=== PATIENT | male | born 1995 | race Caucasian/White ===

== ENCOUNTER → 2020-03-02 | Day surgery (SDC) | payer BC ==
[~2020-03-02] MED LIST: ACETAMINOPHEN-1 EAC1 PO; DULCOLAX5 MG PO; LIDOCAINE 2%2 %/5 GM; PEPCID20 MG PO; PRILOSEC 20 MG20 MG PO; SERTRALINE HCL50 MG PO; TOPROL XL50 MG; XYREM500 MG/1 M PO; ZOLOFT50 MG PO
--- NOTE | 2020-03-02 09:16 | EKG ---
[place] [address] ELECTROCARDIOGRAM REPORT Name: WILL MONTELONGO Room: [facility]#: [id number] Admission: 03/02/20 Attend Phys: Loco Thurman DO Discharge: Date of : 89 Date of Service: 03/02/20728 Report #: [id number] THIS REPORT FOR: //name// [facility] Test Date: 2020-03-02 Test Time: 07:29:32 Pat Name: WILL MONTELONGO Department: Room: Gender: Driver Manager: : 1995 Requested By: Loco Thurman Order Number: [id number] Reading MD: Simone Echavarria Measurements Intervals [place] Rate: 74 P: 59 NC: 195 QRS: 59 QRSD: 83 T: 49 QT: 360 QTc: 400 Interpretive Statements Sinus rhythm early repolarization No previous ECG available for comparison Electronically Signed On 03-02-2020 9:15:05 CDT by Simone Echavarria [email or web address] <ELECTRONICALLY SIGNED> By: Simone Echavarria MD, [facility] 03/02/2015 8 0729 Simone Echavarria MD, FACC /EPI
--- NOTE | 2020-03-02 10:17 | OP ---
[address] [address] OPERATIVE REPORT Name: WILL MONTELONGO Room: [facility]#: [id number] Admission: 03/02/20 Attend Phys: Loco Thurman DO Discharge: Date of : [birth year] Report #: [id number] THIS REPORT FOR: //name// cc: Clara Lawler MD, Pamela MD ~ THIS REPORT FOR: //name// CC: Loco Lawler DICTATED BY: Oswaldo Key DO DATE OF SERVICE: 03/02/2020 PREOPERATIVE DIAGNOSIS: Anal fissure. POSTOPERATIVE DIAGNOSIS: Posterior midline anal fissure. PRIMARY SURGEON: Loco Thurman DO CO-SURGEON: Oswaldo Key DO MUSEUM GUIDE: None. OPERATION PERFORMED: Anal exam under anesthesia, digital rectal exam, anoscopy and anal dilation. ANESTHESIA: Both general and local. ESTIMATED BLOOD LOSS: 10 mL. SPECIMEN REMOVED: None. COMPLICATIONS: None. DISPOSITION: PACU to home. INDICATIONS FOR PROCEDURE: The patient is a pleasant 24-year-old male who presented to the office with chief complaint of severe anal pain with stooling. The patient does have a chronic history of constipation for which he takes multiple laxatives and stool softeners daily in order to keep regular, suspected anal fissure, unable to perform adequate exam in the office. Recommended anal exam under anesthesia with possible anal dilation. Full discussion of procedure, alternatives, risks, and possible complications were discussed include but not limited to bleeding, infection, postoperative pain, stricture, recurrence of the fissure and incontinence. The patient voiced understanding of [address] [place] [address] OPERATIVE REPORT Name: JAYDAWILL QUEVEDO Room: [facility] [employer].#: [id number] Admission: 03/02/20 Attend Phys: Loco Thurman, DO Discharge: Date of : [birth year] Report #: [id number] these risks and agreed to proceed with surgery. DESCRIPTION OF PROCEDURE: The patient was again seen and examined in preoperative holding area. Fully informed written consent was obtained. Preoperative antibiotics were given. The patient was transported to the operating room suite and placed on the operating table in supine position. Anesthesia then induced general anesthesia via LMA and this was successful. The patient was placed in stirrups. Arms were outstretched on arm boards. Grounding pad was placed to the right lateral thigh. All extremities and joints were padded and protected. Upper extremity Arias Hugger was placed across the chest. Warm blankets across the abdomen. Safety strap was placed across the abdomen as well. The patient was prepped and draped using standard sterile fashion. Time-out was performed prior to onset of procedure began by directly visualizing the anus and followed by a digital rectal exam. There was noted to be findings consistent with a fissure in the posterior midline. At this time, 20 mL of 0.5% Marcaine with epinephrine were injected for local anesthesia. An anoscope was introduced into the rectum and anus. All 4 quadrants were directly visualized. The patient has a history of 3 column hemorrhoidectomy. There was no internal hemorrhoids. There was noted to be a posterior midline anal fissure with skin bulge. Four quadrant anal dilation was then performed using the anoscope. There was noted to be mild bleeding from the fissure. This was controlled with direct pressure and short bursts of electrocautery. The patient tolerated the procedure well. The anal and perineum were cleansed using wet and dry lap. A 5 % lidocaine ointment was applied for additional analgesia as well as a 10 mL of 0.5% Marcaine with epinephrine. Dressing was applied, ABD and mesh undergarments. The patient was then placed back in supine position, extubated in the OR and transferred back to the PACU in stable condition after brief recovery from anesthesia. PLAN: Discharged home. FOLLOWUP: Follow up in the office with Dr. Thurman in 1 week. <ELECTRONICALLY SIGNED> By: Loco Thurman DO 03/02/20 1017 [id number] 1003Adameon Thurman DO /nt
== END | disposition home or self-care (01) ==
LOC: M.SUR 06:44
DX: K60.2 Anal fissure, unspecified (principal); Z79.899 Other long term (current) drug therapy; Z88.8 Allergy status to other drugs, medicaments and biological substances